=== PATIENT | female | born 1970 | race Caucasian/White ===

== ENCOUNTER 2018-09-25 10:48 | Emergency (ER) | payer OTHER ==
[2018-09-25 11:00] VITALS: BMI 36.7
--- NOTE | 2018-09-25 11:15 | PDOC ---
Attending Attestation - Resident Resident Name: Mayank Fortune - ED Attending Attestation I have performed the following: I have examined & evaluated the patient, The case was reviewed & discussed with the resident, I agree w/resident's findings & plan, Exceptions are as noted <Rohan Riley - Last Filed: 09/25/18 11:11> - HPI HPI: 09/25/18 12:19 The patient is a 48 year old female with a significant past medical history of asthma, hypertension and vertigo who presents to the emergency department with palpitations for about 1 month. She states that her palpitations have been intermittent and associated by chest pain and shortness of breath. She reports describes her chest pain as central, worsened with movement and deep inhalation and radiating to her right shoulder and down her arm. .The patient reports that she has a cardio follow up next week. The patient also reports a headache and dizziness today. She states that she has had these symptoms for 4 days associated with nausea. The patient describes her dizziness as the room spinning around her with associated ambulatory imbalance and double vision. Her headache is frontal. The patient denies any other symptoms. She denies any fever , chills, vomiting, diarrhea, constipation or urinary symptoms. She denies any other complaints. Documentation prepared by Eleni Matthews, acting as medical coordinator pesticide use for Rohan Riley MD. - Physicial Exam PE: 09/25/18 12:19 GENERAL: Awake, alert, and fully oriented, in no acute distress HEAD: No signs of trauma EYES: PERRLA, EOMI, sclera anicteric, conjunctiva clear ENT: Auricles normal inspection, hearing grossly normal, nares patent. Moist mucosa NECK: Normal ROM, supple, JVD, or masses LUNGS: Breath sounds equal, clear to auscultation bilaterally. No wheezes, and no crackles HEART: (+)reproducable tenderness to chest. Regular rate and rhythm, normal S1 and S2, no murmurs, rubs or gallops ABDOMEN: Soft, nontender, normoactive bowel sounds. No guarding, no rebound. No masses EXTREMITIES: Normal range of motion, no edema. No clubbing or cyanosis. No cords, erythema, or tenderness NEUROLOGICAL: Cranial nerves II through XII grossly intact. Normal speech, SKIN: Warm, Dry, normal turgor, no rashes or lesions noted. Documentation prepared by Eleni Matthews, acting as medical coordinator pesticide use for Rohan Riley MD. <Eleni Matthews - Last Filed: 09/25/18 12:25> Heart Score/ECG Review #1 ECG reviewed & interpreted by me at: 10:55 09/25/18 11:15 NSR 72, no std/haroon, normal axis ,normal intervals, QTC 409 msec, no brugada, no HOCM, no WPW <Rohan Riley - Last Filed: 09/25/18 11:11>
[2018-09-25 11:58] LABS: EOS % 2.9 % (0-4.5); HEMATOCRIT 36.9 % (32.4-45.2); HEMOGLOBIN 12.5 GM/dL (10.7-15.3); LYMPH % 19.4 % (8-40); MCH 27.4 pg (25.7-33.7); MCHC 33.9 g/dl (32.0-36.0); MEAN CELL VOLUME 80.8 fl (80-96); MEAN PLT VOLUME 10.2 fl (7.5-11.1); MONO % 6.3 % (3.8-10.2); NEUT % 70.4 % (42.8-82.8); PLATELET COUNT 318 K/MM3 (134-434); RBC 4.56 M/mm3 (3.60-5.2); RDW 21.5 % (11.6-15.6); WHITE BLOOD COUNT 8.4 K/mm3 (4.0-10.0)
[2018-09-25] MEDS ORDERED: SODIUM CHLORIDE 1,000 ML IV STA (12:11)
[2018-09-25] MEDS ORDERED: KETOROLAC TROMETHAMINE 30 MG/1 ML VIAL IVPUSH ONE (12:11)
[2018-09-25] MEDS ORDERED: METOCLOPRAMIDE HCL INJECTION 10 MG/2 ML VIAL IVPUSH ONE (12:11)
[2018-09-25] MEDS ORDERED: ACETAMINOPHEN 1000 MG/100 ML VIAL (NON FORMULARY) IVPB ONE (12:15)
[2018-09-25] MEDS ORDERED: ACETAMINOPHEN INJECTION 100 ML IVPB ONE (12:18)
[2018-09-25] MEDS ORDERED: METOCLOPRAMIDE HCL INJECTION 10 MG/2 ML VIAL ONE (12:18)
--- NOTE | 2018-09-25 12:28 | PDOC ---
History of Present Illness - General History Source: Patient Exam Limitations: No Limitations - History of Present Illness Initial Comments: 09/25/18 12:45 The patient is a 48 year old female with a significant past medical history of asthma, hypertension and vertigo who presents to the emergency department with palpitations for about 1 month. She states that her palpitations have been intermittent and associated by chest pain and shortness of breath. She reports describes her chest pain as central, worsened with movement and deep inhalation and radiating to her right shoulder and down her arm. .The patient reports that she has a cardio follow up next week. The patient also reports a headache and dizziness today. She states that she has had these symptoms for 4 days associated with nausea. The patient describes her dizziness as the room spinning around her with associated ambulatory imbalance and double vision. Her headache is frontal. The patient denies any other symptoms. She denies any fever , chills, vomiting, diarrhea, constipation or urinary symptoms. She denies any other complaints. <Eleni Matthews - Last Filed: 09/25/18 12:45> - General History Source: Patient Exam Limitations: No Limitations <Rohan Riley - Last Filed: 09/25/18 14:54> - General Chief Complaint: Palpitations Stated Complaint: PALPITATIONS Time Seen by Provider: 09/25/18 11:08 Past History <Eleni Matthews - Last Filed: 09/25/18 12:45> - Past Medical History Asthma: Yes COPD: No HTN: Yes Other medical history: HERNIATED DISC AND ARTHRITIS - Immunization History Immunization Up to Date: Yes - Suicide/Smoking/Psychosocial Hx Smoking Status: No Smoking History: Never smoked Number of Cigarettes Smoked Daily: 0 Hx Alcohol Use: No Drug/Substance Use Hx: No <Rohan Riley - Last Filed: 09/25/18 14:54> - Past Medical History Allergies/Adverse Reactions: Allergies Allergy/AdvReac Type Severity Reaction Status Date / Time cortisone [Cortisone] Allergy Mild Verified 10/13/12 21:45 Home Medications: Ambulatory Orders Acetaminophen [Tylenol] 650 mg PO Q4H PRN #20 tablet 09/25/18 Losartan Potassium [Cozaar -] 50 mg PO DAILY 09/25/18 Metoclopramide HCl [Reglan] 10 mg PO Q6H PRN #20 tablet 09/25/18 Review of Systems - Review of Systems Able to Perform ROS?: Yes Comments:: 09/25/18 12:48 GENERAL/CONSTITUTIONAL: No fever or chills. No weakness. HEAD, EYES, EARS, NOSE AND THROAT: No change in vision. No ear pain or discharge. No sore throat. CARDIOVASCULAR: (+)chest pain, SOB. RESPIRATORY: No cough, wheezing, or hemoptysis. GASTROINTESTINAL: (+)Nausea. No vomiting, diarrhea or constipation. GENITOURINARY: No dysuria, frequency, or change in urination. MUSCULOSKELETAL: No joint or muscle swelling or pain. No neck or back pain. SKIN: No rash NEUROLOGIC:(+)headache, dizziness. No loss of consciousness, or change in strength/sensation. ENDOCRINE: No increased thirst. No abnormal weight change. HEMATOLOGIC/LYMPHATIC: No anemia, easy bleeding, or history of blood clots. ALLERGIC/IMMUNOLOGIC: No hives or skin allergy. <Eleni Matthews - Last Filed: 09/25/18 12:45> *Physical Exam - Vital Signs Last Vital Signs Temp Pulse Resp BP Pulse Ox 10 F L 60 17 140/76 98 09/25/18 10:57 09/25/18 12:08 09/25/18 12:08 09/25/18 12:08 09/25/18 12:08 - Physical Exam Comments: 09/25/18 12:45 GENERAL: Awake, alert, and fully oriented, in no acute distress HEAD: No signs of trauma EYES: PERRLA, EOMI, sclera anicteric, conjunctiva clear ENT: Auricles normal inspection, hearing grossly normal, nares patent. Moist mucosa NECK: Normal ROM, supple, no JVD, or masses LUNGS: Breath sounds equal, clear to auscultation bilaterally. No wheezes, and no crackles HEART: (+)reproducable tenderness to chest. Regular rate and rhythm, normal S1 and S2, no murmurs, rubs or gallops ABDOMEN: Soft, nontender, normoactive bowel sounds. No guarding, no rebound. No masses EXTREMITIES: Normal range of motion, no edema. No clubbing or cyanosis. No cords, erythema, or tenderness NEUROLOGICAL: Cranial nerves II through XII grossly intact. Normal speech SKIN: Warm, Dry, normal turgor, no rashes or lesions noted. <Eleni Matthews - Last Filed: 09/25/18 12:45> - Vital Signs Last Vital Signs Temp Pulse Resp BP Pulse Ox 10 F L 60 17 140/76 98 09/25/18 10:57 09/25/18 12:08 09/25/18 12:08 09/25/18 12:08 09/25/18 12:08 <Rohan Riley - Last Filed: 09/25/18 14:54> Moderate Sedation - Procedure Monitoring Vital Signs: Procedure Monitoring Vital Signs Temperature 10 F L 09/25/18 10:57 Pulse Rate 60 09/25/18 12:08 Respiratory Rate 17 09/25/18 12:08 Blood Pressure 140/76 09/25/18 12:08 O2 Sat by Pulse Oximetry (%) 98 09/25/18 12:08 <Eleni Matthews - Last Filed: 09/25/18 12:45> - Procedure Monitoring Vital Signs: Procedure Monitoring Vital Signs Temperature 10 F L 09/25/18 10:57 Pulse Rate 60 09/25/18 12:08 Respiratory Rate 17 09/25/18 12:08 Blood Pressure 140/76 09/25/18 12:08 O2 Sat by Pulse Oximetry (%) 98 09/25/18 12:08 <Rohan Riley - Last Filed: 09/25/18 14:54> Heart Score/ECG Review #1 ECG reviewed & interpreted by me at: 11:15 09/25/18 12:24 NSR 72, no std/haroon, normal axis ,normal intervals, QTC 409 msec, no brugada, no HOCM, no WPW <Rohan Riley - Last Filed: 09/25/18 14:54> ED Treatment Course - LABORATORY CBC & Chemistry Diagram: 09/25/18 11:40 09/25/18 11:40 - ADDITIONAL ORDERS Additional order review: Laboratory Results 09/25/18 11:40 PT with INR Cancelled INR Cancelled PTT (Actin FS) Cancelled 09/25/18 11:40 RBC 4.56 MCV 80.8 MCHC 33.9 RDW 21.5 H MPV 10.2 Neutrophils % 70.4 Lymphocytes % 19.4 D Monocytes % 6.3 Eosinophils % 2.9 D Basophils % 1.0 - Medications Given in the ED: ED Medications Discontinued Medications Generic Name Dose Route Start Last Admin Trade Name Freq PRN Reason Stop Dose Admin Acetaminophen 1,000 mg 09/25/18 12:15 09/25/18 12:42 Ofirmev Injection - IVPB 09/25/18 12:16 1,000 mg ONCE ONE Administration Diphenhydramine HCl 25 mg 09/25/18 12:11 09/25/18 12:42 Benadryl Injection - IVPB 09/25/18 12:12 25 mg ONCE ONE Administration <Eleni Matthews - Last Filed: 09/25/18 12:45> - LABORATORY CBC & Chemistry Diagram: 09/25/18 11:40 09/25/18 11:40 - ADDITIONAL ORDERS Additional order review: Laboratory Results 09/25/18 11:40 PT with INR Cancelled INR Cancelled PTT (Actin FS) Cancelled 09/25/18 11:40 RBC 4.56 MCV 80.8 MCHC 33.9 RDW 21.5 H MPV 10.2 Neutrophils % 70.4 Lymphocytes % 19.4 D Monocytes % 6.3 Eosinophils % 2.9 D Basophils % 1.0 <Rohan Riley - Last Filed: 09/25/18 14:54> Medical Decision Making - Medical Decision Making 09/25/18 12:24 A portion of this note was documented by scribe services under my direction. I have reviewed the details of the note, within reason, and agree with the documentation with the following case summary and management plan written by me. Patient treated in the ED. Nursing notes are reviewed and incorporated into the medical decision-making. Vital signs reviewed. Peripheral IV access obtained by the nurse, laboratory studies are drawn and sent, reviewed and interpreted by myself. Vital Signs Temp Pulse Resp BP Pulse Ox 10 F L 60 17 140/76 98 09/25/18 10:57 09/25/18 12:08 09/25/18 12:08 09/25/18 12:08 09/25/18 12:08 48-year-old female patient with history of vertigo, migraines, asthma presents with several complaints. Patient is unable to characterize exact duration and description of her symptoms. Does report that she has had one month of reproducible anterior chest pain to palpation. Stated that she follow-up with a weight calculator at [address] [place] [address] and stated this is likely muscle skeletal. However, she has an appointment later this the with him. Stated today, she noticed that she had multiple symptoms occurred. She reports that she has a frontal pressure-like headache with photophobia and photophobia consistent with her prior migraines. Also reports that she feels vertiginous which is consistent with her prior vertigo symptoms. She reports a persistence of this anterior chest pain with radiation to left shoulder and some shortness of breath. States that palpation anterior chest worsens the pain. The character since the pain is the same. Came to the ER for further evaluation. The patient's chest pain is atypical for acute coronary syndrome. However, we' ll obtain a troponin. This is a chronic problem that has been ongoing. Once we obtained results, we'll consult patient's weight calculator. We'll send a d-dimer though I have low suspicion for pulmonary embolism. Obtain labs. I suspect the patient is also having vertigo and migraines and will treat symptoms and reassess. 09/25/18 14:48 CBC, BMP 09/25/18 11:40 09/25/18 11:40 CMP Sodium 136 mmol/L (136-145) 09/25/18 11:40 Potassium 5.5 mmol/L (3.5-5.1) H 09/25/18 11:40 Chloride 102 mmol/L (98-107) 09/25/18 11:40 Carbon Dioxide 28 mmol/L (21-32) 09/25/18 11:40 Anion Gap 5 MMOL/L (8-16) L 09/25/18 11:40 BUN 11 mg/dL (7-18) 09/25/18 11:40 Creatinine 0.5 mg/dL (0.55-1.3) L 09/25/18 11:40 Creat Clearance w eGFR > 60 (>60) 09/25/18 11:40 Random Glucose 86 mg/dL (74-106) 09/25/18 11:40 Calcium 9.5 mg/dL (8.5-10.1) 09/25/18 11:40 Phosphorus 3.7 mg/dL (2.5-4.9) 09/25/18 11:40 Magnesium 2.2 mg/dL (1.8-2.4) 09/25/18 11:40 Total Bilirubin 0.3 mg/dL (0.2-1) 09/25/18 11:40 AST 36 U/L (15-37) 09/25/18 11:40 ALT 24 U/L (13-61) 09/25/18 11:40 Alkaline Phosphatase 78 U/L (45-117) 09/25/18 11:40 Creatine Kinase 143 IU/L (26-192) 09/25/18 11:40 Troponin I < 0.02 ng/ml (0.00-0.05) 09/25/18 11:40 Total Protein 7.5 g/dl (6.4-8.2) 09/25/18 11:40 Albumin 3.4 g/dl (3.4-5.0) 09/25/18 11:40 TSH 2.69 uIU/ml (0.358-3.74) 09/25/18 11:40 Serum , Qual Negative 09/25/18 12:14 D-dimer negative. Pt reports significant relief with IV tylenol, benadryl and migraine. Pt has an appointment with cardiology. She has an appointment with a city planner, but two months later. Patient has diffuse joint pains for months. She states is undergoing a rheum workup. Will give her another referral here to [facility] given that it's two months later. Pt states that she would like to go home. I feel comfortable sending her home. Discharge diagnosis: costochrondritis, atypical chest pain. I discussed the physical exam findings, ancillary test results and final diagnoses with the patient. I answered all of the patient's questions. The patient was satisfied with the care received and felt comfortable with the discharge plan and treatment plan. The patient will call their primary care physician within 24 hours to arrange follow-up and will return to the Emergency Department with any new, persistant or worsening symptoms. <Rohan Riley - Last Filed: 09/25/18 14:54> *DC/Admit/Observation/Transfer - Attestations Scribe Attestion: 09/25/18 12:50 Documentation prepared by Eleni Matthews, acting as medical driver for Rohan Riley MD. <Eleni Matthews - Last Filed: 09/25/18 12:45> - Discharge Dispostion Decision to Admit order: No <Rohan Riley - Last Filed: 09/25/18 14:54> Diagnosis at time of Disposition: Costochondritis, Atypical chest pain Migraine Qualifiers: Migraine type: unspecified Status migrainosus presence: without status migrainosus Intractability: not intractable Qualified Code(s): G43.909 - Migraine, unspecified, not intractable, without status migrainosus - Discharge Dispostion Disposition: HOME Condition at time of disposition: Improved - Prescriptions Prescriptions: Acetaminophen [Tylenol] 650 mg PO Q4H PRN #20 tablet PRN Reason: Pain Metoclopramide HCl [Reglan] 10 mg PO Q6H PRN #20 tablet PRN Reason: Headache/Nausea - Referrals Referrals: Cheyenne Franks MD [Primary Care Provider] - - Patient Instructions - Post Discharge Activity
[2018-09-25 12:55] LABS: ALBUMIN 3.4 g/dl (3.4-5.0); ALK PHOS 78 U/L (45-117); ANION GAP 5 MMOL/L (8-16); BILIRUBIN,TOTAL 0.3 mg/dL (0.2-1); BLOOD UREA NITROGEN 11 mg/dL (7-18); CALCIUM 9.5 mg/dL (8.5-10.1); CHLORIDE 102 mmol/L (98-107); CO2 28 mmol/L (21-32); CREATININE 0.5 mg/dL (0.55-1.3); GLUCOSE,RANDOM 86 mg/dL (74-106); MAGNESIUM 2.2 mg/dL (1.8-2.4); PHOSPHOROUS 3.7 mg/dL (2.5-4.9); POTASSIUM 5.5 mmol/L (3.5-5.1); SGOT/AST 36 U/L (15-37); SGPT/ALT 24 U/L (13-61); SODIUM 136 mmol/L (136-145); TOT PROT 7.5 g/dl (6.4-8.2)
[2018-09-25 13:04] LABS: URINE APPEARANCE CLEAR; URINE BILIRUBIN NEGATIVE (<2.0 mg/dL); URINE COLOR STRAW; URINE GLUCOSE (UA) NEGATIVE (NEGATIVE); URINE KETONE NEGATIVE (NEGATIVE); URINE LEUK ESTERASE 1+ (NEGATIVE); URINE NITRITE NEGATIVE (NEGATIVE); URINE PROTEIN NEGATIVE (NEGATIVE); URINE UROBILINOGEN NEGATIVE mg/dL (0.2-1.0)
[2018-09-25 13:05] LABS: HCG,QUALITATIVE URINE Negative
[2018-09-25 13:08] LABS: INR 0.97 (0.83-1.09); PROTHROMBIN TIME (PATIENT) 11.4 SEC (9.7-13.0)
[2018-09-25 13:10] LABS: ACTIVATED PTT 32.4 SECONDS (25.2-36.5)
[2018-09-25 13:17] LABS: EPI CELLS RARE /HPF (FEW); URINE BACTERIA FEW /hpf (NONE SEEN)
[2018-09-25 14:06] LABS: ANISOCYTOSIS 1+; MACROCYTOSIS 0; OVALOCYTE 1+; PLATELET ESTIMATE NORMAL
[2018-09-25 14:55] VITALS: BP 148/92; PULSE 78; TEMP 98.2
--- NOTE | 2018-09-26 08:44 | EKG ---
Test Reason : Blood Pressure : / mmHG Vent. Rate : 072 BPM Atrial Rate : 072 BPM P-R Int : 144 ms QRS Dur : 074 ms QT Int : 374 ms P-R-T Axes : 031 017 015 degrees QTc Int : 409 ms NORMAL SINUS RHYTHM NORMAL ECG WHEN COMPARED WITH ECG OF 13-OCT-2012 23:07, NO SIGNIFICANT CHANGE WAS FOUND Confirmed by ZACK PALMER MD ([id number]) on 09/26/2018 8:43:46 AM Referred By: Confirmed By:ZACK PALMER MD
== END 2018-09-25 15:03 | disposition home or self-care (01) ==
LOC: JER 10:48
PROC: 3E0337Z Introduction of Electrolytic and Water Balance Substance into Peripheral Vein, Percutaneous Approach (ICD-10-PCS; principal; 2018-09-25)
PROC: 3E033NZ Introduction of Analgesics, Hypnotics, Sedatives into Peripheral Vein, Percutaneous Approach (ICD-10-PCS; 2018-09-25)
DX: M94.0 Chondrocostal junction syndrome [Tietze] (principal); R07.9 Chest pain, unspecified; G43.909 Migraine, unspecified, not intractable, without status migrainosus; I10 Essential (primary) hypertension; J45.909 Unspecified asthma, uncomplicated
CPT/HCPCS: 36415; 80053; 81003; 81015; 82550; 83735; 84100; 84443; 84484; 84703; 85025; 85379; 85610; 85730; 93005; 93010; 96361; 96374; 99284-25; J0131; J7030

== ENCOUNTER 2024-01-15 11:32 | Emergency (ER) | payer OTHER ==
[2024-01-15 11:50] VITALS: RESP 18; TEMP 98.5; BMI 38.3
[2024-01-15 13:07] LABS: BASO % 0.5 % (0-2.0); EOS % 1.7 % (0-4.5); HEMATOCRIT 39.3 % (32.4-45.2); LYMPH % 25.6 % (8-40); MCH 28.6 pg (25.7-33.7); MCHC 33.2 g/dl (32.0-36.0); MEAN CELL VOLUME 86.2 fl (80-96); MEAN PLT VOLUME 9.5 fl (7.5-11.1); MONO % 7.6 % (3.8-10.2); NEUT % 64.6 % (42.8-82.8); PLATELET COUNT 273 10^3/uL (134-434); RBC 4.56 M/mm3 (3.60-5.2); RDW 14.4 % (11.6-15.6); WHITE BLOOD COUNT 8.6 K/mm3 (4.0-10.0)
[2024-01-15 13:14] LABS: INR 1.07 (0.83-1.09); PROTHROMBIN TIME (PATIENT) 12.1 SEC (9.7-13.0)
[2024-01-15 13:17] LABS: ACTIVATED PTT 34.5 SECONDS (25.2-36.5)
[2024-01-15] MEDS ORDERED: KETOROLAC TROMETHAMINE 30 MG/1 ML VIAL ONE (13:18)
[2024-01-15] MEDS ORDERED: METHOCARBAMOL 500 MG TABLET ONE (13:18)
[2024-01-15 13:21] LABS: URINE APPEARANCE CLEAR; URINE COLOR YELLOW
[2024-01-15 13:22] LABS: URINE BILIRUBIN NEGATIVE (NEGATIVE); URINE GLUCOSE (UA) NEGATIVE (NEGATIVE); URINE KETONE NEGATIVE (NEGATIVE); URINE LEUK ESTERASE NEGATIVE (NEGATIVE); URINE NITRITE NEGATIVE (NEGATIVE); URINE PROTEIN NEGATIVE (NEGATIVE)
[2024-01-15 13:31] LABS: CHLORIDE 104 mmol/L (98-107); POTASSIUM 4.3 mmol/L (3.5-5.1); SODIUM 135 mmol/L (136-145)
[2024-01-15] MEDS: KETOROLAC TROMETHAMINE 30 MG/1 ML VIAL IVPUSH ONE (13:32)
[2024-01-15] MEDS: METHOCARBAMOL 750 MG TABLET PO ONE (13:32)
[2024-01-15] MEDS: SODIUM CHLORIDE 1,000 ML IV SCH (13:32)
[2024-01-15 13:33] LABS: ANION GAP 4 mmol/L (4-13); CALCIUM 9.5 mg/dL (8.5-10.1); CO2 28 mmol/L (21-32)
[2024-01-15 13:34] LABS: ALBUMIN 3.4 g/dl (3.4-5.0)
[2024-01-15 13:35] LABS: BLOOD UREA NITROGEN 18.6 mg/dL (7-18); GLUCOSE,RANDOM 98 mg/dL (74-106)
[2024-01-15 13:37] LABS: CREATININE 0.7 mg/dL (0.55-1.3); SGOT/AST 14 U/L (15-37); SGPT/ALT 21 U/L (13-61)
[2024-01-15 13:38] LABS: CHOLESTEROL 148 mg/dL (50-200); TOT PROT 6.9 g/dl (6.4-8.2)
[2024-01-15 13:39] LABS: LDL CHOLESTEROL (ONLY SJRH) 70 mg/dL (5-100)
[2024-01-15 13:40] LABS: BILIRUBIN,TOTAL 0.3 mg/dL (0.2-1)
[2024-01-15 13:41] LABS: ALK PHOS 106 U/L (45-117); HDL CHOLESTEROL 67 mg/dL (40-60)
[2024-01-15 15:01] VITALS: BP 110/68; PULSE 60
== END 2024-01-15 17:16 | disposition home or self-care (01) ==
LOC: JER 11:32
PROC: 3E0303Z Introduction of Anti-inflammatory into Peripheral Vein, Open Approach (ICD-10-PCS; principal; 2024-01-15)
DX: G54.0 Brachial plexus disorders (principal); G89.29 Other chronic pain; R20.0 Anesthesia of skin; R29.898 Other symptoms and signs involving the musculoskeletal system; M25.511 Pain in right shoulder
CPT/HCPCS: 36415; 70450-TC; 70496-TC; 70498-TC; 80053; 80061; 81003; 82550; 82962; 83036; 84484; 85025; 85610; 85730; 86850; 86870; 86880; 86900; 86901; 86902; 93005; 93010; 99285-25; Q9967

== ENCOUNTER 2024-01-28 12:18 | Emergency (ER) | payer OTHER ==
[2024-01-28 13:32] VITALS: RESP 18; TEMP 98; BMI 39.7
[2024-01-28] MEDS ORDERED: METHOCARBAMOL 500 MG TABLET ONE (16:14)
[2024-01-28] MEDS ORDERED: ACETAMINOPHEN 325 MG TABLET (FP) ONE (16:14)
[2024-01-28] MEDS: METHOCARBAMOL 750 MG TABLET PO ONE (16:29)
[2024-01-28] MEDS: ACETAMINOPHEN 325 MG TABLET (FP) PO ONE (16:29)
[2024-01-28 16:34] LABS: BASO % 0.6 % (0-2.0); EOS % 1.8 % (0-4.5); HEMATOCRIT 39.3 % (32.4-45.2); HEMOGLOBIN 13.2 GM/dL (10.7-15.3); LYMPH % 27.4 % (8-40); MCH 28.9 pg (25.7-33.7); MCHC 33.7 g/dl (32.0-36.0); MEAN CELL VOLUME 85.7 fl (80-96); MEAN PLT VOLUME 9.7 fl (7.5-11.1); MONO % 4.6 % (3.8-10.2); NEUT % 65.6 % (42.8-82.8); PLATELET COUNT 295 10^3/uL (134-434); RBC 4.59 M/mm3 (3.60-5.2); RDW 14.7 % (11.6-15.6); WHITE BLOOD COUNT 9.5 K/mm3 (4.0-10.0)
[2024-01-28 16:48] LABS: POTASSIUM 4.2 mmol/L (3.5-5.1)
[2024-01-28 16:50] LABS: CALCIUM 9.9 mg/dL (8.5-10.1)
[2024-01-28 16:51] LABS: ALBUMIN 3.5 g/dl (3.4-5.0); BLOOD UREA NITROGEN 16.7 mg/dL (7-18); MAGNESIUM 2.4 mg/dL (1.8-2.4)
[2024-01-28 16:53] LABS: INR 0.87 (0.83-1.09); PROTHROMBIN TIME (PATIENT) 9.9 SEC (9.7-13.0)
[2024-01-28 16:54] LABS: CREATININE 0.6 mg/dL (0.55-1.3)
[2024-01-28 16:56] LABS: ACTIVATED PTT 33.1 SECONDS (25.2-36.5); BILIRUBIN,TOTAL 0.3 mg/dL (0.2-1); TOT PROT 7.2 g/dl (6.4-8.2)
[2024-01-28] MEDS ORDERED: methylPREDNISolone NA SUCC 1000 MG/8 ML VIAL ONE (18:39)
[2024-01-28] MEDS: methylPREDNISolone NA SUCC 1000 MG/8 ML VIAL IVPB ONE (18:56)
[2024-01-28 19:02] VITALS: BP 163/88; PULSE 55
== END 2024-01-28 21:36 | disposition short-term general hospital (02) ==
LOC: JER 12:18
PROC: 3E030GC Introduction of Other Therapeutic Substance into Peripheral Vein, Open Approach (ICD-10-PCS; principal; 2024-01-28)
DX: G37.3 Acute transverse myelitis in demyelinating disease of central nervous system (principal); R53.1 Weakness; M54.2 Cervicalgia; M25.551 Pain in right hip; M25.552 Pain in left hip; R20.0 Anesthesia of skin
CPT/HCPCS: 36415; 72141-TC; 80053; 83735; 85025; 85610; 85730; 99285-25